=== PATIENT | male | born 1940 | race Caucasian/White ===

== ENCOUNTER 2018-04-15 10:08 | Inpatient (IN) ==
[2018-04-13 17:37] LABS: Appearance,Urine CLEAR; Bacteria,Urine 0 /hpf (0); Bilirubin,Urine NEG (NEG); Color,Urine YELLOW; Glucose,Urine (UA) NEGATIVE (NEG); Leukocyte Esterase,Urine 75 /uL (NEG); Mucus,Urine FEW /hpf (0); Protein,Urine NEG (NEG); Specific Gravity,Urine 1.017 (1.000-1.035); Urine Blood NEG mg/dL (<0.03); Urine RBC 2 /hpf (0-1); Urine Squamous Epithelial Cell 1 /hpf (0-4); Urine WBC 8 /hpf (0-4); Urobilinogen,Urine NEG (NEG)
[2018-04-13 20:00] LABS: Basophils # (Auto) 0.1 K/mcL (0.0-0.3); Basophils % (Auto) 0.9 % (0.0-2.0); Eosinophils # (Auto) 0.5 K/mcL (0.0-0.7); Eosinophils % (Auto) 5.5 % (0.0-7.0); Granulocytes % (Auto) 64.4 % (38.0-78.0); Lymphocytes # (Auto) 1.7 K/mcL (1.5-4.8); Lymphocytes % (Auto) 20.3 % (15.5-49.0); Mean Cell Volume 97.7 fL (80.0-100.0); Mean Corpuscular HGB Conc 33.4 g/dL (31.0-36.0); Mean Corpuscular Hemoglobin 32.6 pg (26.0-34.0); Monocytes # (Auto) 0.8 K/mcL (0.1-0.9); Monocytes % (Auto) 8.9 % (1.0-12.0); Platelet Count 247 K/mcL (140-440); RBC 4.74 M/mcL (4.50-5.90); Red Cell Distribution Width 13.1 % (11.5-14.5)
[2018-04-13 20:01] LABS: Blood Urea Nitrogen 15 mg/dl (8-23)
[~2018-04-15 10:08] MED LIST: CELECOXIB 200 MG CAPSULE PO SCH; PREGABALIN 75 MG CAPSULE PO SCH; ceFAZolin 1 GM VIAL IV SCH; oxyCODONE 10 MG TAB.ER.12H PO SCH
[2018-04-15 11:48] LABS: Appearance,Urine HAZY; Bacteria,Urine MOD /hpf (0); Bilirubin,Urine NEG (NEG); Color,Urine YELLOW; Glucose,Urine (UA) NEGATIVE (NEG); Leukocyte Esterase,Urine 250 /uL (NEG); Mucus,Urine FEW /hpf (0); Protein,Urine NEG (NEG); Specific Gravity,Urine 1.021 (1.000-1.035); Sperm,Urine PRESENT /hpf (ABSENT); Urine Blood NEG mg/dL (<0.03); Urine RBC 2 /hpf (0-1); Urine Squamous Epithelial Cell < 1 /hpf (0-4); Urine Transitional Epi Cells 1 /hpf (0-2); Urine WBC 98 /hpf (0-4); Urobilinogen,Urine NEG (NEG)
[2018-04-15] MEDS ORDERED: PROPOFOL 200 MG/20 ML VIAL IV ONE (12:25)
[2018-04-15] MEDS ORDERED: LIDOCAINE HCL/PF 100 MG/5 ML SYRINGE IV ONE (12:25)
[2018-04-15] MEDS ORDERED: PHENYLEPHRINE 10 MG/ML VIAL IV ONE (12:25)
[2018-04-15] MEDS ORDERED: ePHEDrine 50 MG/ML AMPUL IV ONE (12:25)
[2018-04-15] MEDS ORDERED: DEXAMETHASONE 10 MG/ML VIAL IV ONE (12:25)
[2018-04-15] MEDS ORDERED: KETAMINE 100 MG/ML ML IV ONE (12:25)
[2018-04-15] MEDS ORDERED: TRANEXAMIC ACID 1,000 MG/10 ML VIAL IV ONE ×2 (12:25→13:54)
[2018-04-15] MEDS ORDERED: GLYCOPYRROLATE 0.2 MG/ML VIAL IV ONE (12:25)
[2018-04-15] MEDS ORDERED: ONDANSETRON 4 MG/2 ML VIAL IV ONE (12:25)
[2018-04-15] MEDS ORDERED: MIDAZOLAM 5 MG/5 ML VIAL IV ONE (12:25)
[2018-04-15] MEDS ORDERED: fentaNYL 100 MCG/2 ML VIAL IV ONE (12:25)
[2018-04-15] MEDS ORDERED: GENTAMICIN SULFATE 800 MG/20 ML VIAL IR ONE (13:16)
[2018-04-15] MEDS ORDERED: PROMETHAZINE 25 MG/ML VIAL IV PRN (13:47)
[2018-04-15] MEDS ORDERED: NALOXONE HCL 0.4 MG/ML VIAL IV PRN (13:47)
[2018-04-15] MEDS ORDERED: BENZOCAINE/MENTHOL 1 LOZENGE PO PRN ×2 (13:47→13:54)
[2018-04-15] MEDS ORDERED: ACETAMINOPHEN 1,000 MG/100 ML BOTTLE IV ONE (13:47)
[2018-04-15] MEDS ORDERED: ONDANSETRON 4 MG/2 ML VIAL IV PRN ×2 (13:47→13:54)
[2018-04-15] MEDS ORDERED: FLUMAZENIL 0.1 MG/ML ML IV PRN (13:47)
[2018-04-15] MEDS ORDERED: LACTATED RINGERS 250 ML IV PRN (13:47)
[2018-04-15] MEDS ORDERED: MEPERIDINE 25 MG/ML SYRINGE IV PRN (13:47)
[2018-04-15] MEDS ORDERED: METHOCARBAMOL 1,000 MG/10 ML VIAL IV PRN (13:47)
[2018-04-15] MEDS ORDERED: IPRATROPIUM/ALBUTEROL 3 ML AMPUL.NEB NEB PRN (13:47)
--- NOTE | 2018-04-15 13:53 | Brief Operative Note ---
Date of procedure: 04/15/18 Pre-op diagnosis: right hip oa Post-op diagnosis: same Procedure: right total hip arthroplasty Grafts/Implants: Yes Anesthesia: spinal Complications: none Surgeon: Dorian Sunshine Translation Director: Trisha Nieto Estimated blood loss (cc): 700 Specimens Removed/Pathology: none sent Condition: stable Disposition: PACU
[2018-04-15] MEDS ORDERED: FLEETS ADULT ENEMA PR PRN (13:54)
[2018-04-15] MEDS ORDERED: POLYETHYLENE GLYCOL 3350 17 GM PACKET PO PRN (13:54)
[2018-04-15] MEDS ORDERED: ONDANSETRON ODT 4 MG TABLET SL PRN (13:54)
[2018-04-15] MEDS ORDERED: MAGNESIUM HYDROXIDE 30 ML ORAL.SUSP PO PRN (13:54)
[2018-04-15] MEDS ORDERED: METHOCARBAMOL 750 MG TABLET PO PRN (13:54)
[2018-04-15] MEDS ORDERED: BISACODYL 10 MG SUPP.RECT PR PRN (13:54)
[2018-04-15] MEDS ORDERED: ALBUMIN HUMAN 12.5 GM/50 ML BAG IV ONE (14:27)
--- NOTE | 2018-04-15 14:30 | Operative Note ---
DATE OF OPERATION: 04/15/2018 PREOPERATIVE DIAGNOSIS: Degenerative joint disease, right hip. POSTOPERATIVE DIAGNOSIS: Degenerative joint disease, right hip. PROCEDURE: Right total hip arthroplasty. SURGEON: Dion Sunshine M.D. ENVIRONMENTAL EDUCATION SPECIALIST SURGEON: Trisha Nieto PA-C ANESTHESIA: Spinal with LMA assist. ESTIMATED BLOOD LOSS: 700 mL COMPLICATIONS: None noted. SPECIMENS REMOVED: None. DRAINS: None. IMPLANTS: DePuy [place] Gription acetabular shell 58 mm diameter, DePuy [place] AltrX polyethylene acetabular liner lipped 36 x 58, DePuy femoral stem Actis DuoFix size 10 standard barnes, DePuy Biolox Delta ceramic femoral head +5, 36 mm DePuy apex hole eliminator PS. INDICATIONS: The patient has had a longstanding history of worsening pain in the hip that has failed conservative treatment. Radiographs have confirmed advanced degenerative joint disease. After a long discussion about treatment options, the patient elected to proceed with a hip arthroplasty. The risks and benefits were discussed with the patient in detail including, but not limited to, the risks of anesthesia, problems with the heart or lungs related to anesthesia, infection, compromise or injury to the nerves and blood vessels, deep venous thrombosis, pulmonary embolism, pneumonia, continued pain after surgery, worsening pain or symptoms after surgery, swelling, loss of motion, instability, leg length discrepancy, and need for repeat surgery. DESCRIPTION OF PROCEDURE: The patient was seen in pre-anesthesia waiting room where all questions were answered and the correct side and site were identified and marked. The patient was then brought to the operating room and administered the anesthetic and given pre-operative antibiotics. A time-out was then called. The patient was placed in the lateral decubitus position with all prominences well-padded using the Gabriel frame and the extremity was prepped and draped in the usual sterile fashion. Anesthesia gave the patient 1 gm of tranexamic acid via an intravenous route. A standard posterior approach was made. We dissected through the skin and subcutaneous tissue to the deep fascia. The deep fascia was split in line with the incision and a Charnley retractor was placed. We exposed, tagged, and incised the short external rotators and piriformis tendon and retracted them posteriorly to help protect the sciatic nerve which was palpated throughout the case. We then performed a T-capsulotomy and tagged the capsule edges. Prior to dislocating the hip, we set a length and offset gauge from a Steinmann pin in the iliac wing to a willian on the greater trochanter. The hip was then dislocated and a femoral neck osteotomy was performed to the pre-surgical templated level off the lesser trochanter. The head was removed and sized. We next turned our attention to the acetabulum. Retractors were placed for optimal visualization. A complete labral excision was performed. The capsule was preserved for later closure. We began reaming using anatomic landmarks with the DePuy [place] acetabular system. We medialized the cup and reamed up to provide good fill and coverage of the trial. When the trial was stable and appropriately positioned with approximately 20 degrees of anteversion and 45 degrees of abduction, we impacted the DePuy [place] cup and placed a cancellous screw in the posterior-superior quadrant. Osteophytes were removed from around the shell. We placed the trial liner and turned our attention to the femur. We placed retractors for visualization, internally rotated the femur, and established intramedullary access. We broached using the DePuy Actis stem to a stable platform medial, lateral, and rotationally with the appropriate version. We then performed a calcar reaming off the broach. Trials were then placed and optimized for leg length and stability. We used the leg length and offset guide to confirm our trials. Best stability, length, and offset characteristics were obtained with these sizes. We removed all trials and impacted the polyethylene acetabular liner in a standard fashion after a thorough irrigation. We then impacted the femoral stem to its broached location and placed the head. Final reduction was performed. Again, good stability, leg length, and offset characteristics were noted. We irrigated with three liters of antibiotic saline. We closed the capsule with #2 FiberWire. We closed the fascia with a combination of #2 Stratafix and #0 Vicryl. We closed the subcutaneous tissue and skin in layers out to Dermabond on the skin. A sterile pressure dressing and abduction wedge was applied. All needle and sponge counts were correct. The patient was transferred to the recovery room in stable condition. JOSE DANIEL:jordan Job ID: [id number] Doc ID: [id number] Dion Sunshine MD
--- NOTE | 2018-04-15 14:49 | XRay Report ---
HISTORY: Postop right hip replacement FINDINGS: There is a well-positioned right total hip prosthesis. No fracture is present. There are vascular calcifications in the pelvis and both left and right groin. IMPRESSION: Well-positioned right hip prosthesis Interpreted and Authenticated by: James Odom 04/15/18
[2018-04-15] MEDS: fentaNYL 100 MCG/2 ML VIAL IV PRN ×4 (15:00→15:20)
[2018-04-15] MEDS: LACTATED RINGERS 1,000 ML IV SCH ×2 (15:05→15:13)
[2018-04-15] MEDS: 0.9 % SODIUM CHLORIDE 10 ML SYRINGE IV SCH ×2 (15:10→21:09)
[2018-04-15] MEDS: 0.9 % SODIUM CHLORIDE 1,000 ML IV SCH (16:29)
[2018-04-15] MEDS: HYDROcodone/APAP 10/325MG TABLET PO PRN (16:29)
[2018-04-15 17:17] LABS: Basophils # (Auto) 0 K/mcL (0.0-0.3); Basophils % (Auto) 0.1 % (0.0-2.0); Eosinophils # (Auto) 0.1 K/mcL (0.0-0.7); Eosinophils % (Auto) 0.4 % (0.0-7.0); Granulocytes % (Auto) 91.3 % (38.0-78.0); Lymphocytes # (Auto) 0.9 K/mcL (1.5-4.8); Lymphocytes % (Auto) 5.8 % (15.5-49.0); Mean Cell Volume 98.1 fL (80.0-100.0); Mean Corpuscular HGB Conc 33.6 g/dL (31.0-36.0); Mean Corpuscular Hemoglobin 32.9 pg (26.0-34.0); Monocytes # (Auto) 0.4 K/mcL (0.1-0.9); Monocytes % (Auto) 2.4 % (1.0-12.0); Platelet Count 220 K/mcL (140-440); RBC 4.03 M/mcL (4.50-5.90); Red Cell Distribution Width 13.1 % (11.5-14.5)
[2018-04-15] MEDS: KETOROLAC 15 MG/ML VIAL IV PRN (17:52)
[2018-04-15] MEDS ORDERED: OMEPRAZOLE 20 MG CAPSULE PO SCH (21:00)
[2018-04-15] MEDS ORDERED: SENNOSIDES 1 TABLET PO SCH (21:00)
[2018-04-15] MEDS: FAMOTIDINE 20 MG TABLET PO SCH (21:06)
[2018-04-15] MEDS: DOCUSATE SODIUM 100 MG CAPSULE PO SCH (21:06)
[2018-04-15] MEDS: ceFAZolin 1 GM VIAL IV SCH (21:06)
[2018-04-15] MEDS: LORATADINE 10 MG TABLET PO SCH (21:07)
[2018-04-15] MEDS: Resveratrol PO SCH (21:08)
[2018-04-16] MEDS: HYDROcodone/APAP 10/325MG TABLET PO PRN ×2 (00:15→11:25)
[2018-04-16] MEDS: 0.9 % SODIUM CHLORIDE 1,000 ML IV SCH ×2 (00:15→07:53)
[2018-04-16] MEDS: ceFAZolin 1 GM VIAL IV SCH (03:51)
[2018-04-16] MEDS: 0.9 % SODIUM CHLORIDE 10 ML SYRINGE IV SCH (05:04)
--- NOTE | 2018-04-16 06:52 | Discharge Summary ---
Providers - Providers Patient information: Note initiated : 04/16/18 at 6:50 am Service Date, if different from initiated Date: [] Patient: Romulo Clark 78 y/o M admitted on 04/15/18 for Right Total Hip Arthroplasty. Chief Complaint: [right MAHAD Patient doing well. Denies significant pain as well as numbness, tingling, calf pain, CP or SOB. Wanting to go home. No questions or concerns.] Discharge date: 04/16/18 Hospitalization Hospital course: Patient brought to OR yesterday for right MAHAD which went on without complication. Stayed one night for pain control and post op management. Will d/ c to home today and follow up in clinic in 10-14 days. Discharge diagnosis: hip osteoarthritis Exam - Exam Incision healing: Yes Incision draining: No Incision red: No Incision swollen: No Incision inflamed: No Clean and dry: Yes Weight bearing status: as tolerated Range of motion: full foot, knee, ankle Ortho Discharge - MAHAD - Patient Instructions Diet: Regular Diet Activity: activity as tolerated, ambulate with assistive device, weight bearing as tolerated Total Hip Protocol: Follow activity instructions as provided by Physical Therapy. Dressing Care: May shower in 2 days, Other (dermabond) - Follow Up Plan Follow Up Appointments: Dorian Sunshine MD [Physician] - Disposition: Home, Self-Care Prognosis: Good Rehab Potential: Good I certify that the patient requires SNF services: No Overall status at discharge: patient is progressing back to baseline - Orders For Discharge Prescriptions: HYDROcodone/APAP 10/325MG [[place] 10-325Mg] 1 - 2 tab PO Q4HP PRN #60 tab PRN Reason: Pain Level 3-6 Additional Discharge Orders: Physical Therapy at Discharge - MAHAD Location: None Selected Walker Location: None Selected Pending Studies Resuscitation Status Full Code Diet Regular Diet Start FriApr 15 1356 Hydrocodone Bitart/Acetaminophen ([place] 10/325mg) 0 tab PO Q4HP PRN PRN Reason: PAIN LEVEL 3-6 Last Admin: 04/16/18 00:15 Dose: 2 tab Admin: 04/15/18 16:29 Dose: 2 tab Docusate Sodium (Colace) 100 mg PO BID [facility] Last Admin: 04/15/18 21:06 Dose: 100 mg Famotidine (Pepcid) 20 mg PO BID [facility] Last Admin: 04/15/18 21:06 Dose: 20 mg Sodium Chloride (Sodium Chloride 0.9%) 1,000 mls @ 125 mls/hr IV .Q8H [facility] Last Admin: 04/16/18 00:15 Dose: 125 mls/hr Infusion: 04/16/18 00:15 Dose: 125 mls/hr Admin: 04/15/18 16:29 Dose: 125 mls/hr Ketorolac Tromethamine (Toradol) 15 mg IV Q6HP PRN PRN Reason: Pain Stop: 04/17/18 13:57 Last Admin: 04/15/18 17:52 Dose: 15 mg Loratadine (Claritin) 10 mg PO BID [facility] Last Admin: 04/15/18 21:07 Dose: 10 mg Omeprazole (Prilosec) 40 mg PO HS [facility] Last Admin: 04/15/18 21:07 Dose: 40 mg Resveratrol 1 dose PO BID [facility] Last Admin: 04/15/18 21:08 Dose: 1 dose Senna (Senokot) 2 tab PO HS [facility] Last Admin: 04/15/18 21:07 Dose: 2 tab Sodium Chloride (Saline Flush) 10 ml IV Q8 [facility] Last Admin: 04/16/18 05:04 Dose: Not Given Admin: 04/15/18 21:09 Dose: Not Given Admin: 04/15/18 15:10 Dose: Not Given Shift Summary 04/16/18 04:44 Shift Summary by Hernandez Arriaga Pt has rested on & off tonight. He has had min pain - [place] 10 (2) PO given last @ 0015 - currently 08/30. Ice pk in place. RT hip dressing showing very light shadow - dry & intact. He is voiding per urinal - continue PVR scans - last was 301ml @ 0340 after a void of 200ml. VS - B/P & H.R. running low - all else WNL on R.A.. He has his own BIPAP for sleep. NS @ 125ml/hr infusing to his LT F/A. He is A&O x4, calm, pleasant, & cooperative. Initialized on 04/16/18 04:44 - END OF NOTE
[2018-04-16] MEDS: LORATADINE 10 MG TABLET PO SCH (08:25)
[2018-04-16] MEDS: KETOROLAC 15 MG/ML VIAL IV PRN (08:25)
[2018-04-16] MEDS: DOCUSATE SODIUM 100 MG CAPSULE PO SCH (08:25)
[2018-04-16] MEDS: FAMOTIDINE 20 MG TABLET PO SCH (08:25)
[2018-04-16] MEDS ORDERED: LOSARTAN 50 MG TABLET PO SCH (09:00)
[2018-04-16] MEDS ORDERED: RIVAROXABAN 20 MG TABLET PO SCH (09:00)
[2018-04-16] MEDS: Resveratrol PO SCH (10:23)
== END 2018-04-16 12:15 | disposition home or self-care (01) | DRG 470 ==
LOC: MEDSUR 10:08
PROVIDERS: ADMIT Orthopaedic Surgery Sports Medicine; ATTEND Orthopaedic Surgery Sports Medicine